=== PATIENT | male | born 1960 | race African-American/Black ===

== ENCOUNTER 2018-02-07 18:13 | Emergency (ER) | payer OTHER ==
[~2018-02-07] VITALS: Ht 185.4 cm; Wt 72.1 kg
[~2018-02-07 18:13] MED LIST: Advair HFA 230/21 IH; Oscal, Oyster Shell PO; RACEPINEPHRINE; VENTOLIN HFA18 GM IH; VENTOLIN17 GM IH; ZYRTEC10 M2 PO
[2018-02-07 19:02] LABS: HEMATOCRIT 35.9 % (38.0-50.0); HEMOGLOBIN 12.3 G/DL (12.5-16.6); MCH 30.1 PG (29.0-34.0); MCHC 34.3 G/DL (30.0-36.0); MCV 87.8 FL (86-99); PLATELET COUNT 250 K/uL (156-360); RBC DIS.WIDTH-CV 14.4 % (11.8-14.6); RBC DIS.WIDTH-SD 46.7 % (39-53); RED BLOOD COUNT 4.09 M/uL (4.00-5.50); WHITE BLOOD COUNT 7.1 K/uL (4.1-10.2)
[2018-02-07 19:23] LABS: CHLORIDE 105 mEq/L (99-109); SODIUM 138 mEq/L (136-147)
[2018-02-07 19:24] LABS: GLUCOSE 135 mg/dL (70-99); TROP-I INTERPRETATION NEGATIVE; TROPONIN-I < 0.01 ng/mL (0.0-0.30)
[2018-02-07 19:28] LABS: CREATININE 1.1 mg/dL (0.6-1.3); GFR ESTIMATE (CALCULATED) > 59 mL/min/ (58.99-99999)
[2018-02-07 19:29] LABS: UREA NITROGEN (BUN) 12 mg/dL (9-23)
[2018-02-07] MEDS ORDERED: NAPROSYN500 MG PO (21:42)
[2018-02-07 21:56] VITALS: BP 155/93
== END 2018-02-07 21:56 | disposition home or self-care (01) ==
LOC: EME 18:13
DX: R07.89 Other chest pain (principal); R94.31 Abnormal electrocardiogram [ECG] [EKG]; J44.9 Chronic obstructive pulmonary disease, unspecified; F17.200 Nicotine dependence, unspecified, uncomplicated; Z79.51 Long term (current) use of inhaled steroids; Z88.6 Allergy status to analgesic agent
CPT/HCPCS: 71046; 80048; 84484; 85027; 93005; 99281; 99284; J1885